=== PATIENT | male | born 1945 | race Caucasian/White ===

== ENCOUNTER 2017-11-08 07:39 | Observation (INO) | payer OTHER ==
[~2017-11-08] VITALS: Ht 167.6 cm; Wt 88.8 kg
[~2017-11-08 07:39] MED LIST: ASPIR-LOW81 MG PO; CRESTOR20 MG PO; CRESTOR40 MG PO; CRESTOR5 MG PO; Ceftin PO; Cepacol Lozenge, Sor MM; LEVOFLOXACIN750 MG PO; MULTIVITAMIN1 EAC2 PO; Metamucil Packet PO; OMEPRAZOLE10 M1 PO; OMEPRAZOLE20 MG PO; PRILOSEC10 MG PO; PROBIOTIC PO; PriLOSEC PO; TAMIFLU75 MG PO; Tessalon Perle PO; Zithromax PO
[2017-11-08 09:39] LABS: HEMATOCRIT 37.7 % (38.0-50.0); HEMOGLOBIN 13.4 G/DL (12.5-16.6); MCH 31.2 PG (29.0-34.0); MCHC 35.5 G/DL (30.0-36.0); MCV 87.9 FL (86-99); PLATELET COUNT 279 K/uL (156-360); RBC DIS.WIDTH-CV 12.7 % (11.8-14.6); RBC DIS.WIDTH-SD 40.3 % (39-53); RED BLOOD COUNT 4.29 M/uL (4.00-5.50); WHITE BLOOD COUNT 13.9 K/uL (4.1-10.2)
[2017-11-08 09:48] LABS: CHLORIDE 92 mEq/L (99-109); POTASSIUM 4.2 mEq/L (3.7-5.4); SODIUM 125 mEq/L (136-147)
[2017-11-08 09:50] LABS: GLUCOSE 99 mg/dL (70-99)
[2017-11-08 09:54] LABS: CREATININE 0.7 mg/dL (0.6-1.3); GFR ESTIMATE (CALCULATED) > 59 mL/min/ (58.99-99999)
[2017-11-08 09:55] LABS: UREA NITROGEN (BUN) 12 mg/dL (9-23)
[2017-11-08] MEDS ORDERED: LO-DOSE ASPIRIN81 M1 PO (12:31)
[2017-11-08] MEDS ORDERED: OMEPRAZOLE40 M1 PO (12:31)
[2017-11-08] MEDS ORDERED: CORTEF5 M1 PO ×2 (12:32)
[2017-11-08] MEDS ORDERED: ONCE DAILY1 EACH PO (12:32)
[2017-11-08] MEDS ORDERED: SYNTHROID50 MCG PO (12:33)
[2017-11-08 13:14] LABS: THYROTROPIN (TSH) 2.8 MIU/L (0.4-5.5)
[2017-11-08 18:00] VITALS: BP 99/80
[2017-11-08 20:22] VITALS: BP 104/58
[2017-11-09 00:52] VITALS: BP 115/69
[2017-11-09 04:51] VITALS: BP 129/68
[2017-11-09 06:00] LABS: HEMATOCRIT 36.6 % (38.0-50.0); HEMOGLOBIN 12.9 G/DL (12.5-16.6); MCHC 35.2 G/DL (30.0-36.0); PLATELET COUNT 288 K/uL (156-360); RBC DIS.WIDTH-CV 12.9 % (11.8-14.6); RBC DIS.WIDTH-SD 41.2 % (39-53); RED BLOOD COUNT 4.16 M/uL (4.00-5.50)
[2017-11-09 06:21] LABS: CHLORIDE 95 MEQ/L (99-109); CREATININE 0.7 MG/DL (0.6-1.3); GFR ESTIMATE (CALCULATED) > 59 mL/min/ (58.99-99999); GLUCOSE 89 mg/dL (70-99); POTASSIUM 4.4 MEQ/L (3.7-5.4); SODIUM 127 MEQ/L (136-147); UREA NITROGEN (BUN) 12 mg/dL (9-23)
[2017-11-09 08:00] VITALS: BP 124/63
[2017-11-09 11:22] VITALS: BP 129/59
[2017-11-09] MEDS ORDERED: AZITHROMYCIN500 M1 PO (12:55)
== END 2017-11-09 13:20 | disposition home or self-care (01) ==
LOC: EME 07:39 → EDOF 11:37 → 5WEST 11:37 → EDOF 11:37 → ENRESERV 12:13 → 5WEST 17:24
PROVIDERS: Internal Medicine
DX: E87.1 Hypo-osmolality and hyponatremia (principal); J00 Acute nasopharyngitis [common cold]; E23.0 Hypopituitarism; I10 Essential (primary) hypertension; E78.5 Hyperlipidemia, unspecified; K22.70 Barrett's esophagus without dysplasia
CPT/HCPCS: 71046; 80048; 82533 91; 83930; 83935; 84443; 85027; 94640; 99281; 99283; G0378; J1650; J7030